=== PATIENT | male | born 1990 | race Caucasian/White ===

== ENCOUNTER 2017-10-01 08:43 | Emergency (ER) | payer BC ==
[~2017-10-01] VITALS: Ht 177.8 cm; Wt 93.5 kg
[2017-10-01 11:16] VITALS: BP 138/81
== END 2017-10-01 11:17 | disposition home or self-care (01) ==
LOC: EME 08:43
DX: G43.909 Migraine, unspecified, not intractable, without status migrainosus (principal)
CPT/HCPCS: 99281; 99284; J1885; J2765; J7030